=== PATIENT | male | born 1990 | race American Indian/Alaskan Native ===

== ENCOUNTER 2017-03-13 15:12 | Emergency (ER) | payer OTHER ==
[2017-03-13] MEDS ORDERED: cefTRIAXone (Rocephin) 250 mg Inj IM STA (16:34)
--- NOTE | 2017-03-13 16:35 | C.PDOC ---
History Of Present Illness 26 year old male presents to the ED for treatment of sexually transmitted disease and testing. Patient states that his girlfriend tested positive for chlamydia. He was concerned that he may have been exposed and he came to the ER. Patient denies having penile discharge, dysuria, or testicular pain. Time Seen by Provider: 03/13/17 16:11 Chief Complaint (Nursing): Male Genitourinary History Per: Patient History/Exam Limitations: no limitations Onset/Duration Of Symptoms: Hrs Current Symptoms Are (Timing): Still Present Past Medical History Reviewed: Historical Data, Nursing Documentation, Vital Signs Vital Signs: Last Vital Signs Temp 99.1 F 03/13/17 15:43 Pulse 100 H 03/13/17 15:43 Resp 14 03/13/17 15:43 BP 117/80 03/13/17 15:43 Pulse Ox 98 03/13/17 17:01 - Medical History PMH: No Chronic Diseases Surgical History: No Surg Hx Family History: States: No Known Family Hx - Social History Hx Alcohol Use: Yes Hx Substance Use: Yes - Immunization History Hx Tetanus Toxoid Vaccination: No Hx Influenza Vaccination: No Hx Pneumococcal Vaccination: No Review Of Systems Constitutional: Negative for: Fever Eyes: Negative for: Redness Cardiovascular: Negative for: Chest Pain, Palpitations Respiratory: Negative for: Cough, Shortness of Breath Gastrointestinal: Negative for: Vomiting, Abdominal Pain, Diarrhea Genitourinary: Negative for: Dysuria, Penile Discharge, Scrotal Pain, Other ( testicular pain) Skin: Negative for: Rash Neurological: Negative for: Headache Physical Exam - Physical Exam Appears: Well, Non-toxic, No Acute Distress Skin: Normal Color, Warm Head: Atraumatic, Normacephalic Eye(s): bilateral: Normal Inspection Nose: Normal Oral Mucosa: Moist Neck: Normal ROM Chest: Symmetrical Cardiovascular: Rhythm Regular Respiratory: Normal Breath Sounds, No Accessory Muscle Use Extremity: Bilateral: Atraumatic, Normal Color And Temperature, Normal ROM Neurological/Psych: Oriented x3, Normal Speech, Other (no focal deficits) ED Course And Treatment O2 Sat by Pulse Oximetry: 98 (RA) Pulse Ox Interpretation: Normal Medical Decision Making Medical Decision Making: Impression: STD testing Plan: Rocephin and zithromax Progress: Shortly after receiving medications patient is feeling nauseous and not well, he states he had not eaten all day. Will monitor patient and give sandwich and juice. Re-eval: 1725 Patient is feeling better Dispo: Patient stable for discharge. Advised to follow up with clinic. Will call with results in 1-2 days Disposition Counseled Patient/Family Regarding: Diagnosis, Need For Followup, Rx Given - Disposition Referrals: [facility] [Outside] Disposition: HOME/ ROUTINE Disposition Time: 17:30 Condition: STABLE Additional Instructions: You were treated for STD with Rocephin and Zithromax. Please follow up in the clinic. Instructions: Sexually Transmitted Diseases (ED) Forms: [employer] ([place]), STD Clinic - POA Present On Arrival: None - Clinical Impression Clinical Impression: Exposure to STD - PA / [employer]IST / Resident Statement MD/DO has reviewed & agrees with the documentation as recorded. - Scribe Statement The provider has reviewed the documentation as recorded by the Scribe Jeremiah Hendrickson Provider Attestation All medical record entries made by the Scribe were at my direction and personally dictated by me. I have reviewed the chart and agree that the record accurately reflects my personal performance of the history, physical exam, medical decision making, and the department course for this patient. I have also personally directed, reviewed, and agree with the discharge instructions and disposition.
[2017-03-13 17:31] VITALS: BP 111/73; PULSE 62; RESP 18; TEMP 97.8
[2017-03-13 17:53] VITALS: O2SAT 98
== END 2017-03-13 17:50 | disposition home or self-care (01) ==
LOC: C.ER 15:12
DX: Z20.2 Contact with and (suspected) exposure to infections with a predominantly sexual mode of transmission (principal)
CPT/HCPCS: 87491; 87591; 96372; 99285; J0696